=== PATIENT | female | born 1975 | race Caucasian/White ===

== ENCOUNTER 2019-01-05 13:39 | Outpatient (CLI) | payer BC ==
[~2019-01-05 13:39] MED LIST: ISOVUE-370 76%-LOCM 1 ML ONE
--- NOTE | 2019-01-05 14:54 | CT ---
EXAM: Abdomen and pelvic CT scan with contrast: HISTORY: Pancreatic pseudocyst COMPARISON: None FINDINGS: Groundglass opacities are present within each lung base, partially visualized Liver: Unremarkable. 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 A rim c alcified 4.6 x 4.6 cm round hypodensity is present adjacent the residual pancreas, adjacent the adjacent gastric wall. Spleen: Spleen is absent. There is splenosis of the left upper quadrant Adrenal glands: Unremarkable. Kidneys: No renal calculus or acute obstruction. No solid or cystic mass. Bowel: No evidence for bowel obstruction. Urinary Bladder: Decompressed, limiting assessment Adenopathy: No adenopathy within the abdomen or pelvis. Free Air: No free air. Ascites: No ascites. Osseous structures: No acute osseous abnormalities. Radiopaque density is present within the vaginal vault, presumably a contraceptive device. Correlate clinically. IMPRESSION: No acute abnormality of the abdomen and pelvis. Absence of gallbladder, spleen and portions of the pancreas. Adjacent the postoperative pancreas, the re is a round, rim calcified 4.6 cm cystic mass, which may relate to chronic pseudocyst formation.
== END 2019-01-05 13:40 | disposition home or self-care (01) ==
LOC: BICCT 13:39
PROVIDERS: ATTEND Internal Medicine Gastroenterology
DX: K86.2 Cyst of pancreas (principal); K59.00 Constipation, unspecified; K86.9 Disease of pancreas, unspecified; Z98.890 Other specified postprocedural states; Z90.49 Acquired absence of other specified parts of digestive tract; Z90.411 Acquired partial absence of pancreas
CPT/HCPCS: 74177; Q9966